=== PATIENT | female | born 1995 | race Caucasian/White ===

== ENCOUNTER 2019-07-13 14:59 | Outpatient (CLI) | payer OTHER, SELFPAY ==
--- NOTE | ~2019-07-13 | US_ITS ---
EXAMINATION: US OB /maternal detail DATE: 07/13/2019 16:33 INDICATION: survey TECHNIQUE: Multiple obstetric sonographic images performed. FINDINGS: Ultrasound dated 05/24/2019 There is a single living fetus in vertex presentation. The placenta is anterior without placenta pre via. Placenta is low lying measuring 2.8 cm to the cervix. Amniotic fluid volume is normal. ARNULFO measu res 13.4 cm cm. cardiac activity and movement is noted with a heart rate of 144 beats per minute. The following anatomy was identified as normal: 4 chamber heart 3 vessel cord cord insertion kidneys urinary bladder stomach spine diaphragm ventricles cisterna magna cerebellum The following biometric data were obtained: BPD: 42mm corresponds to gestational age 18 weeks 6 days. Head circumference: 159 mm corresponds to gestational age 18 weeks 5 days. Abdominal circumference: 134 mm corresponds to gestational age 18 weeks 6 days. Femur length: 27 mm corresponds to gestational age 18 weeks 1 days. Head circumference to abdominal circumference ratio: 1.19 (normal range for expected gestational age is 1.09-1.26). Estimated weight: 246 grams +/- 37 grams using Hadlock method. IMPRESSION: 1: Single living intrauterine with an estimated gestational age of 18weeks 6days by initial ultrasound measurements, with an EDC of 12/08/2019 in vertex presentation. 2. Normal survey. 3: Low-lying anterior placenta measuring 2.8 cm to the cervix. Reviewed, dictated and finalized at location A. IMPRESSION: 1: Single living intrauterine with an estimated gestational age of 18 weeks 6days by initial ultrasound measurements, with an EDC of 12/08/2019 in ve rtex presentation. 2. Normal survey. 3: Low-lying anterior placenta measuring 2.8 cm to the cervix.
== END 2019-07-13 15:00 | disposition home or self-care (01) ==
PROVIDERS: Visit Provider Nurse Practitioner
DX: O44.42 Low lying placenta NOS or without hemorrhage, second trimester (principal); Z3A.18 18 weeks gestation of pregnancy
CPT/HCPCS: 76805